=== PATIENT | female | born 1930 | race Caucasian/White ===

== ENCOUNTER 2017-07-27 10:14 | Inpatient (IN) | payer OTHER, MEDICARE ==
[2017-07-27 10:33] VITALS: BMI 22.1
[2017-07-27] MEDS ORDERED: ONDANSETRON 4 MG/2 ML VIAL IVPUSH ONE (10:57)
--- NOTE | 2017-07-27 10:57 | PDOC ---
History of Present Illness - General History Source: Patient Exam Limitations: No Limitations - History of Present Illness Initial Comments: 07/27/17 13:41 The patient is an 87 year old female with past medical history of hypertension, hyperlipidemia, hypothyroidism and depression who presents to the ED with complaints of cough and nasal congestion that began yesterday. 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 This morning she reports experiencing some nausea and vomited en route to the ED, stating it was yellow in appearance. +chills today. She denies any fevers , diarrhea, constipation, chest pain, shortness of breath , or any urinary symptoms. The patient reports she received her flu vaccination and pneumonia vaccination this year. PCP: Chantelle Peterson [employer] Teacher Librarian: Kathrin Kirkpatrick <Tere Lara - Last Filed: 07/27/17 15:13> <Jimbo Lynch - Last Filed: 07/27/17 15:57> - General Chief Complaint: Nausea/Vomiting Stated Complaint: NAUSEA/VOMITING, WEAKNESS Time Seen by Provider: 07/27/17 10:41 Past History <Tere Lara - Last Filed: 07/27/17 15:13> - Past Medical History COPD: No GI Disorders: Yes (HIATAL HERNIA) HTN: Yes Hypercholesterolemia: Yes Psychiatric Problems: Yes (depression) - Suicide/Smoking/Psychosocial Hx Smoking Status: No Smoking History: Never smoked Number of Cigarettes Smoked Daily: 0 <Jimbo Lynch - Last Filed: 07/27/17 15:57> - Past Medical History Allergies/Adverse Reactions: Allergies Allergy/AdvReac Type Severity Reaction Status Date / Time No Known Allergies Allergy Verified 07/27/17 10:24 Home Medications: Ambulatory Orders Diphenhydramine HCl/Zinc Acet [Benadryl Itch Stopping Crm] 1 applic TP TID PRN # 1 tube 03/01/15 Gabapentin [Neurontin -] 100 mg PO DAILY 03/01/15 Gabapentin [Neurontin -] 300 mg PO HS 03/01/15 Lisinopril [Prinivil -] 10 mg PO DAILY 03/01/15 Omeprazole [Prilosec] 40 mg PO DAILY 03/01/15 Rosuvastatin [Crestor -] 10 mg PO HS 03/01/15 Sertraline HCl [Zoloft -] 50 mg PO DAILY 03/01/15 propRANOLol HCL [Inderal] 20 mg PO BID 03/01/15 Review of Systems - Review of Systems Able to Perform ROS?: Yes Comments:: 07/27/17 13:41 GENERAL/CONSTITUTIONAL: No fever or chills. No weakness. HEAD, EYES, EARS, NOSE AND THROAT: Present: Nasal congestion No change in vision. No ear pain or discharge. No sore throat. GASTROINTESTINAL: Present: nausea, vomiting No diarrhea or constipation. GENITOURINARY: No dysuria, frequency, or change in urination. CARDIOVASCULAR: No chest pain or shortness of breath. RESPIRATORY: Present: cough No wheezing, or hemoptysis. MUSCULOSKELETAL: No joint or muscle swelling or pain. No neck or back pain. SKIN: No rash NEUROLOGIC: No headache, vertigo, loss of consciousness, or change in strength/ sensation. ENDOCRINE: No increased thirst. No abnormal weight change. HEMATOLOGIC/LYMPHATIC: No anemia, easy bleeding, or history of blood clots. ALLERGIC/IMMUNOLOGIC: No hives or skin allergy. All Other Systems: Reviewed and Negative <Tere Lara - Last Filed: 07/27/17 15:13> *Physical Exam - Vital Signs Last Vital Signs Temp Pulse Resp BP Pulse Ox 98 F 96 H 18 153/83 96 07/27/17 10:16 07/27/17 10:16 07/27/17 10:16 07/27/17 10:16 07/27/17 10:16 - Physical Exam Comments: 07/27/17 13:41 GENERAL: Awake, alert, and fully oriented, in no acute distress HEAD: No signs of trauma EYES: PERRLA, EOMI, sclera anicteric, conjunctiva clear ENT: Auricles normal inspection, hearing grossly normal, nares patent, oropharynx clear without exudates. Moist mucosa NECK: Normal ROM, supple, no lymphadenopathy, JVD, or masses LUNGS: Breath sounds equal, clear to auscultation bilaterally. No wheezes, and no crackles HEART: Regular rate and rhythm, normal S1 and S2, no rubs or 2/6 TIARRA loudest at RUSB ABDOMEN: Soft, nontender, normoactive bowel sounds. No guarding, no rebound. No masses EXTREMITIES: Normal range of motion, no edema. No clubbing or cyanosis. No cords, erythema, or tenderness NEUROLOGICAL: Normal speech, cranial nerves intact, negative pronator drift, 5/ 5 strength in all 4 extremities, normal sensation to light touch in all 4 extremities, normal cerebellar exam, normal gait, normal reflexes and tone SKIN: Warm, Dry, normal turgor, no rashes or lesions noted. <Tere Lara - Last Filed: 07/27/17 15:13> - Vital Signs Last Vital Signs Temp Pulse Resp BP Pulse Ox 98 F 96 H 18 153/83 96 07/27/17 10:16 07/27/17 10:16 07/27/17 10:16 07/27/17 10:16 07/27/17 10:16 <Jimbo Lynch - Last Filed: 07/27/17 15:57> Heart Score/ECG Review #1 07/27/17 15:55 Twelve-lead EKG was performed and reviewed by me. Normal sinus rhythm, rate 83. Normal axis and intervals. No ST elevations. No T-wave inversions <Jimbo Lynch - Last Filed: 07/27/17 15:57> ED Treatment Course - LABORATORY CBC & Chemistry Diagram: 07/27/17 11:20 07/27/17 11:20 - ADDITIONAL ORDERS Additional order review: Laboratory Results 07/27/17 07/27/17 11:20 11:20 Sodium 139 Potassium 3.5 Chloride 101 Carbon Dioxide 27 Anion Gap 11 BUN 12 Creatinine 0.7 Creat Clearance w eGFR > 60 Random Glucose 128 H Calcium 8.8 Magnesium 1.8 Total Bilirubin 0.7 AST 13 L ALT 20 Alkaline Phosphatase 75 Troponin I < 0.02 B-Natriuretic Peptide 309.54 Cancelled Total Protein 7.6 Albumin 3.6 Lipase 111 07/27/17 11:30 Influenza Types A,B Antigen (VIVI) - Final Nasopharyngeal Swab - Final 07/27/17 11:20 RBC 4.68 MCV 85.5 MCHC 33.4 RDW 14.2 MPV 8.7 Neutrophils % 85.7 H Lymphocytes % 8.3 Monocytes % 5.2 Eosinophils % 0.3 Basophils % 0.5 - RADIOLOGY Radiograph Interpretation: 07/27/17 15:13 Chest X-ray as reviewed by reports development of bilateral medial lower lung zones atelectatic changes vs infiltrate. - Medications Given in the ED: ED Medications Discontinued Medications Generic Name Dose Route Start Last Admin Trade Name Estephania PRN Reason Stop Dose Admin Ondansetron HCl 4 mg 07/27/17 10:57 07/27/17 11:24 Zofran Injection IVPUSH 07/27/17 10:58 4 mg ONCE ONE Administration <Tere Lara - Last Filed: 07/27/17 15:13> - LABORATORY CBC & Chemistry Diagram: 07/27/17 11:20 07/27/17 11:20 <Jimbo Lynch - Last Filed: 07/27/17 15:57> Medical Decision Making - Medical Decision Making 07/27/17 10:59 87-year-old female history of hypertension, hyperlipidemia depression presents the emergency department with 1 day of productive cough since yesterday, generalized weakness, and nausea with 1 episode of vomiting today. Vitals unremarkable. Exam with 2/6 systolic ejection murmur loudest at the right upper sternal border. Differential includes but not limited to influenza versus UTI versus possibly acute coronary syndrome. Plan: -labs -flu swab -cxr -UA -reassess 07/27/17 15:49 Labs wnl. CXR with possible infiltrates, no hospitalizations recently, covered with ceftriaxone and azithro Nausea improved slightly with zofran but pt continues to feel nauseous with poor appetite CTH ordered given global, gradual onset leiva, also ordered tylenol Case discussed with Dr. Juanita Rossi who admits for Dr. Peterson Pt accepted for admission to inpt med/surg Case discussed in detail with admitting physician including history, physical exam and ancillary studies. Admitting physician has assumed care for the patient, will follow all pending diagnostics and will complete the evaluation and treatment. <Jimbo Lynch - Last Filed: 07/27/17 15:57> *DC/Admit/Observation/Transfer - Attestations Scribe Attestion: 07/27/17 13:42 Documentation prepared by Tere Lara, acting as medical technologist hematology for Jimbo Lynch MD. <Tere Lara - Last Filed: 07/27/17 15:13> - Discharge Dispostion Admit: Yes - Attestations Physician Attestion: 07/27/17 15:55 I, Dr. Jimbo Lynch MD, attest that this document has been prepared under my direction and personally reviewed by me in its entirety. I further attest, that it accurately reflects all work, treatment, procedures and medical decision -making performed by me. <Jimbo Lynch - Last Filed: 07/27/17 15:57> Diagnosis at time of Disposition: Pneumonia - Discharge Dispostion Condition at time of disposition: Stable - Referrals Referrals: Chantelle Peterson MD [Primary Care Provider] - - Patient Instructions - Post Discharge Activity
[2017-07-27] MEDS ORDERED: ONDANSETRON 4 MG/2 ML VIAL ONE ×2 (11:05→17:10)
[2017-07-27 11:27] LABS: BASO % 0.5 % (0-2.0); EOS % 0.3 % (0-4.5); HEMATOCRIT 40.1 % (32.4-45.2); HEMOGLOBIN 13.4 GM/dL (10.7-15.3); LYMPH % 8.3 % (8-40); MCH 28.6 pg (25.7-33.7); MCHC 33.4 g/dl (32.0-36.0); MEAN CELL VOLUME 85.5 fl (80-96); MEAN PLT VOLUME 8.7 fl (7.5-11.1); MONO % 5.2 % (3.8-10.2); NEUT % 85.7 % (42.8-82.8); PLATELET COUNT 105 K/MM3 (134-434); RBC 4.68 M/mm3 (3.60-5.2); RDW 14.2 % (11.6-15.6); WHITE BLOOD COUNT 8.1 K/mm3 (4.0-10.0)
[2017-07-27 11:56] LABS: ALBUMIN 3.6 g/dl (3.4-5.0); ANION GAP 11 (8-16); BILIRUBIN,TOTAL 0.7 mg/dL (0.2-1.0); BLOOD UREA NITROGEN 12 mg/dL (7-18); CALCIUM 8.8 mg/dL (8.5-10.1); CHLORIDE 101 mmol/L (98-107); CO2 27 mmol/L (21-32); CREATININE 0.7 mg/dL (0.55-1.02); GLUCOSE,RANDOM 128 mg/dL (74-106); LIPASE 111 U/L (73-393); MAGNESIUM 1.8 mg/dL (1.8-2.4); POTASSIUM 3.5 mmol/L (3.5-5.1); SGOT/AST 13 U/L (15-37); SGPT/ALT 20 U/L (12-78); SODIUM 139 mmol/L (136-145); TOT PROT 7.6 g/dl (6.4-8.2)
[2017-07-27 11:59] LABS: N-TERMINAL BNP 309.54 pg/ml (5-450)
[2017-07-27 12:04] LABS: ALK PHOS 75 U/L (45-117)
[2017-07-27] MEDS ORDERED: ACETAMINOPHEN 325 MG TABLET (FP) ONE (14:52)
[2017-07-27] MEDS ORDERED: ACETAMINOPHEN 500 MG TABLET (FP) PO ONE (14:52)
[2017-07-27] MEDS ORDERED: CEFTRIAXONE 1,000 MG in DEXTROSE 5%-WATER - 50 ML IVPB ONE (15:40)
[2017-07-27] MEDS ORDERED: AZITHROMYCIN IVPB 500 MG in DEXTROSE 5%-WATER - 250 ML IVPB ONE (15:41)
--- NOTE | 2017-07-27 16:21 | EKG ---
Test Reason : Blood Pressure : / mmHG Vent. Rate : 083 BPM Atrial Rate : 083 BPM P-R Int : 152 ms QRS Dur : 094 ms QT Int : 380 ms P-R-T Axes : 081 017 069 degrees QTc Int : 446 ms SINUS RHYTHM WITH MARKED SINUS ARRHYTHMIA POSSIBLE LEFT ATRIAL ENLARGEMENT LEFT VENTRICULAR HYPERTROPHY ABNORMAL ECG WHEN COMPARED WITH ECG OF 11-MAY-2008 11:21, NONSPECIFIC T WAVE ABNORMALITY NOW EVIDENT IN ANTERIOR LEADS Confirmed by CAITLYN ORTEGA, MIRTA ([id number]) on 07/27/2017 4:21:05 PM Referred By: Confirmed By:MIRTA BRADY MD
--- NOTE | 2017-07-27 16:31 | HP ---
Admitting History and Physical - Primary Care Physician PCP: Hedy Rossi S - Admission Chief Complaint: cough N/V History of Present Illness: The patient is an 87 year old female with past medical history of hypertension, hyperlipidemia, hypothyroidism and depression who presents to the ED with complaints of cough and nasal congestion that began yesterday. 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 This morning she reports experiencing some nausea and vomited en route to the ED, stating it was yellow in appearance. +chills today. Also had some headcahes. In ER was borderline tachycardic. She denies any fevers , diarrhea, constipation, chest pain, shortness of breath, or any urinary symptoms. The patient reports she received her flu vaccination and pneumonia vaccination this year. History Source: Patient, Medical Record Limitations to Obtaining History: No Limitations - Past Medical History Cardiovascular: Yes: CAD, HTN - Smoking History Smoking history: Never smoked Aproximately how many cigarettes per day: 0 - Alcohol/Substance Use Hx Alcohol Use: No History of Substance Use: reports: None - Social History Usual Living Arrangement: Yes: Alone ADL: Independent History of Recent Travel: No Home Medications - Allergies Allergies/Adverse Reactions: Allergies Allergy/AdvReac Type Severity Reaction Status Date / Time No Known Allergies Allergy Verified 07/27/17 10:24 - Home Medications Home Medications: Ambulatory Orders Gabapentin [Neurontin -] 100 mg PO DAILY 03/01/15 Gabapentin [Neurontin -] 300 mg PO HS 03/01/15 Lisinopril [Prinivil -] 10 mg PO DAILY 03/01/15 Omeprazole [Prilosec] 40 mg PO DAILY 03/01/15 Rosuvastatin [Crestor -] 10 mg PO HS 03/01/15 Sertraline HCl [Zoloft -] 50 mg PO DAILY 03/01/15 propRANOLol HCL [Inderal] 20 mg PO BID 03/01/15 Family Disease History - Family Disease History Family History: Unremarkable Review of Systems - Review of Systems Constitutional: denies: Chills, Fever Eyes: denies: Blurred Vision, Double Vision HENT: denies: Ear Pain, Epistaxis Neck: denies: Stiffness, Tenderness Cardiovascular: reports: Palpitations. denies: Chest Pain, Edema, Shortness of Breath Respiratory: reports: Cough, SOB on Exertion. denies: Hemoptysis, Orthopnea, PND, SOB, Wheezing Gastrointestinal: reports: Nausea, Vomiting. denies: Abdominal Pain, Bloating, Constipation, Diarrhea, Dysphagia, Vomiting Blood Genitourinary: denies: Flank Pain, Hematuria Musculoskeletal: denies: Back Pain, Joint Swelling Integumentary: denies: Erythema, Rash, Wound Neurological: reports: Headache. denies: Change in LOC, Change in Speech, Confusion, Dizziness, Seizure, Syncope, Tremors, Unsteady Gait Hematology/Lymphatic: denies: Easily Bruised, Excessive Bleeding Psychiatric: denies: Altered Sleep Pattern, Anxiety, Depression, Hallucinations Physical Examination Vital Signs: Vital Signs Temperature 98 F 07/27/17 10:16 Pulse Rate 96 H 07/27/17 10:16 Respiratory Rate 18 07/27/17 10:16 Blood Pressure 153/83 07/27/17 10:16 O2 Sat by Pulse Oximetry (%) 96 07/27/17 10:16 Constitutional: Yes: No Distress, Calm Eyes: Yes: Conjunctiva Clear HENT: Yes: Atraumatic Neck: Yes: Supple Cardiovascular: Yes: Regular Rate and Rhythm Respiratory: Yes: CTA Bilaterally Gastrointestinal: Yes: Soft. No: Distention, Tenderness Renal/: No: CVA Tenderness - Left, CVA Tenderness - Right, Hematuria Musculoskeletal: No: Joint Stiffness, Joint Swelling Extremities: No: Cold, Cool, Cyanosis Edema: No Peripheral Pulses WNL: Yes Integumentary: No: Rash, Venous Stasis Changes Neurological: Yes: WNL, Alert, Oriented ...Motor Strength: WNL Psychiatric: Yes: WNL, Alert, Oriented. No: Agitated, Suicidal Ideation Labs: CBC, BMP 07/27/17 11:20 07/27/17 11:20 Imaging - Results Chest X-ray: Report Reviewed Other: Report Reviewed Assessment/Plan The patient is an 87 year old female with past medical history of hypertension, hyperlipidemia, hypothyroidism and depression who presents to the ED with complaints of cough and congestion 1 day duration, also N/V/ headaches CXR c/w bilateral PNA; will check chest CT admit IV ATB, pulm eval BP control head CT ordered in ER for [facility]IVER[facility] pt said she sees outpt GI, endocrine and cardiology, as per her PCP dr Yaquelin Peterson; I d/w dr Peterson about this pt plan and management also I d/w pt and staff and her 2 sisters at bedside falls PFX GI, DVT PFX prognosis guarded t time 75 min
[2017-07-27] MEDS ORDERED: ALBUTEROL SO4 0.083% IH SOL 2.5 MG/3 ML VIAL.NEB. NEB PRN (16:35)
[2017-07-27] MEDS ORDERED: AZITHROMYCIN IVPB 250 ML IVPB ONE (16:45)
[2017-07-27] MEDS ORDERED: CEFTRIAXONE 1 GM/50 ML BAG ONE (16:46)
[2017-07-27 16:47] LABS: URINE APPEARANCE CLEAR; URINE BILIRUBIN NEGATIVE (<2.0 mg/dL); URINE BLOOD NEGATIVE (NEGATIVE); URINE COLOR LTYELLOW; URINE GLUCOSE (UA) NEGATIVE (NEGATIVE); URINE KETONE 1+ (NEGATIVE); URINE LEUK ESTERASE NEGATIVE (NEGATIVE); URINE NITRITE NEGATIVE (NEGATIVE); URINE UROBILINOGEN NEGATIVE mg/dL (0.2-1.0)
[2017-07-27 16:49] LABS: URINE PROTEIN 1+ (NEGATIVE)
[2017-07-27 16:53] LABS: CALCIUM OXALATE CRYSTALS RARE /hpf (NONE SEEN); URINE BACTERIA RARE /hpf (NONE SEEN)
[2017-07-27 16:54] LABS: URINE MUCUS RARE
[2017-07-27] MEDS ORDERED: PT OWN MED DRAWER 7, Y5N ONE (21:23)
[2017-07-27] MEDS: GABAPENTIN 300 MG CAPSULE (FP) PO SCH (21:37)
[2017-07-27] MEDS: ROSUVASTATIN CA 10 MG TABLET (FP) PO SCH (21:38)
[2017-07-27] MEDS: HEPARIN NA (PORCINE) 5,000 UNITS/ML 1ML VIAL SQ SCH (21:38)
--- NOTE | 2017-07-28 07:20 | PN ---
Progress Note, Physician Chief Complaint: in bed feels a little better no headaches; head CT no acute changes Chest CT d/w pt: RLL 1.2 cm mass/ nodule needs 2-3 months f/u CT and pulm f/u with dr Soto outpt r/o malignancy/ vs inflam process; d/w pt and PCP; also thyroid nodule/ goiter (needs endocrine f/u) coronary calcifications and Ao stenosis needs echo and cardio f/u, large HH (pt aware) needs GI f/u outpt eats OK no N/V/ abdominal pain O2 sat/RA 96% pt ambulates to the bathroom and into the hallway d/w pt falls PFX call for help if needs OOB - Current Medication List Current Medications: Active Medications Albuterol Sulfate (Ventolin 0.083% Nebulizer Soln -) 1 amp NEB Q6H PRN PRN Reason: SHORT OF BREATH/WHEEZING Gabapentin (Neurontin -) 300 mg PO [facility] Last Admin: 07/27/17 21:37 Dose: 300 mg Heparin Sodium (Porcine) (Heparin -) 5,000 unit SQ BID [facility] Last Admin: 07/27/17 21:38 Dose: 5,000 unit Azithromycin 500 mg/ Dextrose 250 mls @ 250 mls/hr IVPB DAILY [facility] Ceftriaxone Sodium 1 gm/ (Dextrose) 50 mls @ 100 mls/hr IVPB DAILY [facility] Lisinopril (Prinivil) 10 mg PO DAILY [facility] Pantoprazole Sodium (Protonix -) 40 mg PO DAILY [facility] Propranolol HCl (Inderal -) 20 mg PO BID [facility] Last Admin: 07/27/17 22:52 Dose: 20 mg Rosuvastatin Calcium (Crestor -) 10 mg PO [facility] Last Admin: 07/27/17 21:38 Dose: 10 mg Sertraline HCl (Zoloft -) 50 mg PO DAILY [facility] - Objective Vital Signs: Vital Signs Temperature 98.5 F 07/28/17 06:00 Pulse Rate 67 07/28/17 06:00 Respiratory Rate 18 07/28/17 06:00 Blood Pressure 114/69 07/28/17 06:00 O2 Sat by Pulse Oximetry (%) 96 07/27/17 21:00 Constitutional: Yes: No Distress, Calm Eyes: Yes: Conjunctiva Clear HENT: Yes: Atraumatic Neck: Yes: Supple Cardiovascular: Yes: Regular Rate and Rhythm Respiratory: Yes: CTA Bilaterally Gastrointestinal: Yes: Soft. No: Distention, Tenderness Genitourinary: No: CVA Tenderness - Left, CVA Tenderness - Right Musculoskeletal: No: Joint Stiffness, Joint Swelling Extremities: No: Calf Tenderness, Cold, Cool, Cyanosis Edema: No Integumentary: No: Rash, Venous Stasis Changes Neurological: Yes: WNL, Alert, Oriented ...Motor Strength: WNL Psychiatric: Yes: WNL, Alert, Oriented. No: Agitated, Suicidal Ideation Labs: CBC, BMP 07/27/17 11:20 07/27/17 11:20 - ....Imaging Other: Report Reviewed Assessment/Plan The patient is an 87 year old female with past medical history of hypertension, hyperlipidemia, hypothyroidism and depression who presents to the ED with complaints of cough and congestion 1 day duration, also N/V/ headaches CXR c/w bilateral PNA;chest CT d/w pt see above f/u needed pt aware IV ATB, pulm f/u BP control head CT negative cardio eval r/o AoSt and ASHD, check echo will need close outpt GI, endocrine and cardiology, as per her PCP dr Yaquelin Peterson ; I d/w dr Peterson about this pt plan and management falls PFX GI, DVT PFX prognosis guarded d/w pt and staff t time 45 min
[2017-07-28 08:42] LABS: BASO % 0.3 % (0-2.0); EOS % 3.7 % (0-4.5); HEMOGLOBIN 12.1 GM/dL (10.7-15.3); LYMPH % 11.5 % (8-40); MCH 28.8 pg (25.7-33.7); MCHC 33.7 g/dl (32.0-36.0); MEAN CELL VOLUME 85.5 fl (80-96); MEAN PLT VOLUME 8.9 fl (7.5-11.1); MONO % 14.1 % (3.8-10.2); NEUT % 70.4 % (42.8-82.8); PLATELET COUNT 106 K/MM3 (134-434); RBC 4.21 M/mm3 (3.60-5.2); RDW 14.3 % (11.6-15.6); WHITE BLOOD COUNT 4.1 K/mm3 (4.0-10.0)
[2017-07-28 08:49] LABS: CHLORIDE 102 mmol/L (98-107); POTASSIUM 4.1 mmol/L (3.5-5.1); SODIUM 140 mmol/L (136-145)
[2017-07-28 09:10] LABS: ALBUMIN 3.1 g/dl (3.4-5.0); ALK PHOS 60 U/L (45-117); ANION GAP 7 (8-16); BILIRUBIN,TOTAL 0.3 mg/dL (0.2-1.0); BLOOD UREA NITROGEN 15 mg/dL (7-18); CALCIUM 8.6 mg/dL (8.5-10.1); CO2 31 mmol/L (21-32); CREATININE 0.7 mg/dL (0.55-1.02); GLUCOSE,RANDOM 89 mg/dL (74-106); SGOT/AST 19 U/L (15-37); SGPT/ALT 20 U/L (12-78); TOT PROT 6.3 g/dl (6.4-8.2)
[2017-07-28] MEDS ORDERED: cefTRIAXone SODIUM 1 GM VIAL ONE (09:29)
[2017-07-28] MEDS ORDERED: DEXTROSE 5%-WATER - 50 ML IVPB ONE (09:29)
[2017-07-28] MEDS ORDERED: PT OWN MED DRAWER 7, Y5N ONE ×2 (09:29→21:52)
[2017-07-28] MEDS: LISINOPRIL 10 MG TABLET (FP) PO SCH (09:47)
[2017-07-28] MEDS: PANTOPRAZOLE 40 MG TABLET (FP) PO SCH (09:48)
[2017-07-28] MEDS: SERTRALINE HCL 50 MG TABLET (FP) PO SCH (09:48)
[2017-07-28] MEDS: CEFTRIAXONE 1 GM in DEXTROSE 5%-WATER - 50 ML IVPB SCH (09:52)
[2017-07-28] MEDS: AZITHROMYCIN IVPB 500 MG in DEXTROSE 5%-WATER - 250 ML IVPB SCH (09:52)
[2017-07-28] MEDS: HEPARIN NA (PORCINE) 5,000 UNITS/ML 1ML VIAL SQ SCH ×2 (09:53→21:56)
--- NOTE | 2017-07-28 14:11 | PN ---
Progress Note (short form) - Note Progress Note: PULMONARY CONSULTATION DICTATED 07/28/17 IMP COUGH ,CONGESTION PNEUMONIA N/V HTN HLD THROMBOCYTOPENIA H/O THYROID NODULES PLAN ABX CHEST CT SPUTUM C+S MONITOR PLT CT DR MARTINEZ Problem List - Problems (1) Nausea & vomiting Code(s): R11.2 - NAUSEA WITH VOMITING, UNSPECIFIED (2) Pneumonia Code(s): J18.9 - PNEUMONIA, UNSPECIFIED ORGANISM (3) HTN (hypertension) Code(s): I10 - ESSENTIAL (PRIMARY) HYPERTENSION (4) Thrombocytopenia Code(s): D69.6 - THROMBOCYTOPENIA, UNSPECIFIED (5) HLD (hyperlipidemia) Code(s): E78.5 - HYPERLIPIDEMIA, UNSPECIFIED
--- NOTE | 2017-07-28 14:58 | CONS ---
DATE OF CONSULTATION: 07/28/2017 REFERRING PHYSICIAN: Hedy Rossi MD HISTORY OF PRESENT ILLNESS: The patient is an 87-year-old white female with a past medical history of hypertension, hypothyroidism, hyperlipidemia, thyroid nodules, depression, admitted to [facility] with complaint of cough, nasal congestion. 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 Afterwards, she had a [id number] and started developing some nausea and vomiting. She also had a cough productive of yellow sputum and some chills. She denied any chest pain, nausea, vomiting, diaphoresis. She denied any shortness of breath. Patient presented to the emergency room. She was felt to have a possible pneumonia. She was transferred out to the medical floor for further management. She denies any history of COPD or asthma in the past. She is a nonsmoker. There is no history of occupational exposure to chemical fumes. She denies any shortness of breath, PND, orthopnea. PAST MEDICAL HISTORY: Again includes hypertension, hyperlipidemia, hypothyroidism, depression. REVIEW OF SYSTEMS: No orthopnea. No PND. No chest pain. No palpitations. Positive for cough which has improved. No fever. No chills. No hemoptysis. Positive nausea. CURRENT MEDICATIONS: Include Zithromax, Prinivil, ceftriaxone, heparin, Neurontin, Zoloft, albuterol, Inderal, Crestor, and Protonix. PHYSICAL EXAMINATION: General: The patient is a well-developed, well-nourished female, awake, alert, in no acute distress. Vital signs: She is afebrile, blood pressure 149/82, respiratory rate 18, O2 saturation is 96% on room air. HEENT: Head is normocephalic atraumatic. Neck: Supple. Heart: Regular, S1, S2. Chest: A few rhonchi noted at the bases, a few scattered rhonchi. Abdomen: Soft. Bowel sounds positive present. Extremities: No cyanosis or edema. LABORATORIES: BUN 15, creatinine 0.7. WBC is 4.1, hemoglobin 12.1, hematocrit 36, platelet count of 106,000. Chest x-ray reveals mild changes, possibly bibasilar infiltrates versus atelectasis. IMPRESSION: 1. Cough, chest congestion, possible pneumonia. 2. Nausea and vomiting, etiology possible gastroenteritis. 3. Mild thrombocytopenia. 4. Hypertension. 5. Hyperlipidemia. 6. Hypothyroidism. PLAN: Give antibiotics, obtain CT scan of the chest, supplemental O2, monitor platelet count. NIKI MARTINEZ M.D. [id number]
[2017-07-28] MEDS: ROSUVASTATIN CA 10 MG TABLET (FP) PO SCH (21:57)
[2017-07-28] MEDS: GABAPENTIN 300 MG CAPSULE (FP) PO SCH (21:57)
--- NOTE | 2017-07-29 07:00 | PN ---
Progress Note, Physician Chief Complaint: had some diarrhea x2 possibly sec to ATB no N/V/ abdominal pain ate OK - Current Medication List Current Medications: Active Medications Albuterol Sulfate (Ventolin 0.083% Nebulizer Soln -) 1 amp NEB Q6H PRN PRN Reason: SHORT OF BREATH/WHEEZING Gabapentin (Neurontin -) 300 mg PO HS [facility] Last Admin: 07/28/17 21:57 Dose: 300 mg Heparin Sodium (Porcine) (Heparin -) 5,000 unit SQ BID [facility] Last Admin: 07/28/17 21:56 Dose: 5,000 unit Azithromycin 500 mg/ Dextrose 250 mls @ 250 mls/hr IVPB DAILY [facility] Last Admin: 07/28/17 09:52 Dose: 250 mls/hr Ceftriaxone Sodium 1 gm/ (Dextrose) 50 mls @ 100 mls/hr IVPB DAILY [facility] Last Admin: 07/28/17 09:52 Dose: 100 mls/hr Lisinopril (Prinivil) 10 mg PO DAILY [facility] Last Admin: 07/28/17 09:47 Dose: 10 mg Pantoprazole Sodium (Protonix -) 40 mg PO DAILY [facility] Last Admin: 07/28/17 09:48 Dose: 40 mg Propranolol HCl (Inderal -) 20 mg PO BID [facility] Last Admin: 07/28/17 21:58 Dose: 20 mg Rosuvastatin Calcium (Crestor -) 10 mg PO [facility] Last Admin: 07/28/17 21:57 Dose: 10 mg Sertraline HCl (Zoloft -) 50 mg PO DAILY [facility] Last Admin: 07/28/17 09:48 Dose: 50 mg - Objective Vital Signs: Vital Signs Temperature 98.0 F 07/28/17 22:00 Pulse Rate 63 07/28/17 22:00 Respiratory Rate 20 07/28/17 22:00 Blood Pressure 117/60 07/28/17 22:00 O2 Sat by Pulse Oximetry (%) 96 07/28/17 21:00 Constitutional: Yes: No Distress, Calm Eyes: Yes: Conjunctiva Clear HENT: Yes: Atraumatic Neck: Yes: Supple Cardiovascular: Yes: Regular Rate and Rhythm Respiratory: Yes: CTA Bilaterally Gastrointestinal: Yes: Soft. No: Distention Genitourinary: No: CVA Tenderness - Left, CVA Tenderness - Right Musculoskeletal: No: Joint Stiffness, Joint Swelling Extremities: No: Cold, Cool Edema: No Integumentary: No: Rash, Venous Stasis Changes Neurological: Yes: WNL, Alert, Oriented ...Motor Strength: WNL Psychiatric: Yes: WNL, Alert, Oriented. No: Agitated Labs: CBC, BMP 07/28/17 07:30 07/28/17 07:30 - ....Imaging Other: Report Reviewed Assessment/Plan The patient is an 87 year old female with past medical history of hypertension, hyperlipidemia, hypothyroidism and depression who presents to the ED with complaints of cough and congestion 1 day duration, also N/V/ headaches CXR c/w bilateral PNA;chest CT d/w pt again f/u needed pt aware IV ATB, pulm f/u BP control diarrhea: check Cdiff, po bacid cardio eval r/o AoSt and ASHD, check echo will need close outpt GI, endocrine and cardiology, as per her PCP dr Yaquelin Peterson ; I d/w dr Peterson about this pt plan and management falls PFX GI, DVT PFX prognosis guarded d/w pt and staff
[2017-07-29 07:37] LABS: BASO % 0.7 % (0-2.0); EOS % 4.4 % (0-4.5); HEMATOCRIT 34.3 % (32.4-45.2); HEMOGLOBIN 11.8 GM/dL (10.7-15.3); LYMPH % 23.3 % (8-40); MCH 29.1 pg (25.7-33.7); MCHC 34.3 g/dl (32.0-36.0); MEAN CELL VOLUME 84.8 fl (80-96); MEAN PLT VOLUME 9.3 fl (7.5-11.1); MONO % 14.5 % (3.8-10.2); NEUT % 57.1 % (42.8-82.8); PLATELET COUNT 112 K/MM3 (134-434); RBC 4.05 M/mm3 (3.60-5.2); RDW 14.5 % (11.6-15.6); WHITE BLOOD COUNT 3.2 K/mm3 (4.0-10.0)
[2017-07-29 07:54] LABS: BLOOD UREA NITROGEN 18 mg/dL (7-18); CALCIUM 8.5 mg/dL (8.5-10.1); CHLORIDE 105 mmol/L (98-107); POTASSIUM 3.4 mmol/L (3.5-5.1); SODIUM 142 mmol/L (136-145)
[2017-07-29 08:00] LABS: ALK PHOS 58 U/L (45-117); ANION GAP 7 (8-16); BILIRUBIN,TOTAL 0.2 mg/dL (0.2-1.0); CO2 30 mmol/L (21-32); CREATININE 0.7 mg/dL (0.55-1.02); GLUCOSE,RANDOM 87 mg/dL (74-106); SGOT/AST 18 U/L (15-37); SGPT/ALT 20 U/L (12-78); TOT PROT 6.3 g/dl (6.4-8.2)
[2017-07-29] MEDS ORDERED: cefTRIAXone SODIUM 1 GM VIAL ONE (11:12)
[2017-07-29] MEDS ORDERED: DEXTROSE 5%-WATER - 50 ML IVPB ONE (11:13)
[2017-07-29] MEDS: PANTOPRAZOLE 40 MG TABLET (FP) PO SCH (11:14)
[2017-07-29] MEDS: SERTRALINE HCL 50 MG TABLET (FP) PO SCH (11:14)
[2017-07-29] MEDS: HEPARIN NA (PORCINE) 5,000 UNITS/ML 1ML VIAL SQ SCH ×2 (11:14→21:25)
[2017-07-29] MEDS: CEFTRIAXONE 1 GM in DEXTROSE 5%-WATER - 50 ML IVPB SCH (11:14)
[2017-07-29] MEDS: LISINOPRIL 10 MG TABLET (FP) PO SCH (11:14)
[2017-07-29] MEDS ORDERED: POTASSIUM CHLORIDE TABS 20 MEQ TABLET.ER (FP) PO ONE (11:21)
--- NOTE | 2017-07-29 12:52 | PN ---
Progress Note, Physician History of Present Illness: pulmonary alert,nad,-sob,less cough,abd pain - Current Medication List Current Medications: Active Medications Albuterol Sulfate (Ventolin 0.083% Nebulizer Soln -) 1 amp NEB Q6H PRN PRN Reason: SHORT OF BREATH/WHEEZING Gabapentin (Neurontin -) 300 mg PO [facility] Last Admin: 07/28/17 21:57 Dose: 300 mg Heparin Sodium (Porcine) (Heparin -) 5,000 unit SQ BID [facility] Last Admin: 07/29/17 11:14 Dose: 5,000 unit Azithromycin 500 mg/ Dextrose 250 mls @ 250 mls/hr IVPB DAILY [facility] Last Admin: 07/28/17 09:52 Dose: 250 mls/hr Ceftriaxone Sodium 1 gm/ (Dextrose) 50 mls @ 100 mls/hr IVPB DAILY [facility] Last Admin: 07/29/17 11:14 Dose: 100 mls/hr Lactobacillus Acidophilus (Bacid -) 1 cap PO DAILY [facility] Lisinopril (Prinivil) 10 mg PO DAILY [facility] Last Admin: 07/29/17 11:14 Dose: 10 mg Pantoprazole Sodium (Protonix -) 40 mg PO DAILY [facility] Last Admin: 07/29/17 11:14 Dose: 40 mg Propranolol HCl (Inderal -) 20 mg PO BID [facility] Last Admin: 07/29/17 11:16 Dose: 20 mg Rosuvastatin Calcium (Crestor -) 10 mg PO [facility] Last Admin: 07/28/17 21:57 Dose: 10 mg Sertraline HCl (Zoloft -) 50 mg PO DAILY [facility] Last Admin: 07/29/17 11:14 Dose: 50 mg - Objective Vital Signs: Vital Signs Temperature 97.9 F 07/29/17 06:00 Pulse Rate 60 07/29/17 06:00 Respiratory Rate 20 07/29/17 06:00 Blood Pressure 132/67 07/29/17 06:00 O2 Sat by Pulse Oximetry (%) 96 07/28/17 21:00 Constitutional: Yes: Well Nourished, Calm Eyes: Yes: WNL HENT: Yes: WNL Neck: Yes: WNL Cardiovascular: Yes: Regular Rate and Rhythm, S1, S2 Respiratory: Yes: CTA Bilaterally Gastrointestinal: Yes: Normal Bowel Sounds, Soft Extremities: Yes: WNL Edema: No Labs: CBC, BMP 07/29/17 07:10 07/29/17 07:10 - ....Imaging Cat Scan: Report Reviewed, Image Reviewed Problem List - Problems (1) Nausea & vomiting Code(s): R11.2 - NAUSEA WITH VOMITING, UNSPECIFIED (2) Pneumonia Code(s): J18.9 - PNEUMONIA, UNSPECIFIED ORGANISM (3) HTN (hypertension) Code(s): I10 - ESSENTIAL (PRIMARY) HYPERTENSION (4) Thrombocytopenia Code(s): D69.6 - THROMBOCYTOPENIA, UNSPECIFIED (5) HLD (hyperlipidemia) Code(s): E78.5 - HYPERLIPIDEMIA, UNSPECIFIED Assessment/Plan IMP COUGH ,CONGESTION improved PNEUMONIA RLL NODULAR INFILTRATE ? INFECTIOUS,? INFLAMMATORY N/V HTN HLD THROMBOCYTOPENIA H/O THYROID NODULES ? PLAN ABX F/U CHEST CT 6-8WKS MONITOR PLT CT ECHO DR MARTINEZ Problem List - Problems (1) Nausea & vomiting Code(s): R11.2 - NAUSEA WITH VOMITING, UNSPECIFIED (2) Pneumonia Code(s): J18.9 - PNEUMONIA, UNSPECIFIED ORGANISM (3) HTN (hypertension) Code(s): I10 - ESSENTIAL (PRIMARY) HYPERTENSION (4) Thrombocytopenia Code(s): D69.6 - THROMBOCYTOPENIA, UNSPECIFIED (5) HLD (hyperlipidemia) Code(s): E78.5 - HYPERLIPIDEMIA, UNSPECIFIED
[2017-07-29] MEDS: AZITHROMYCIN IVPB 500 MG in DEXTROSE 5%-WATER - 250 ML IVPB SCH (12:56)
[2017-07-29] MEDS: LACTOBACILLUS ACIDOPHILUS 1 CAP PO SCH (12:57)
[2017-07-29] MEDS: GABAPENTIN 300 MG CAPSULE (FP) PO SCH (21:25)
[2017-07-29] MEDS: ROSUVASTATIN CA 10 MG TABLET (FP) PO SCH (21:26)
[2017-07-30 07:23] LABS: EOS % 3.6 % (0-4.5); HEMATOCRIT 35.5 % (32.4-45.2); HEMOGLOBIN 12.1 GM/dL (10.7-15.3); LYMPH % 24.2 % (8-40); MCHC 34.2 g/dl (32.0-36.0); MEAN CELL VOLUME 84.9 fl (80-96); MEAN PLT VOLUME 9.1 fl (7.5-11.1); MONO % 11.9 % (3.8-10.2); NEUT % 59.3 % (42.8-82.8); PLATELET COUNT 123 K/MM3 (134-434); RBC 4.18 M/mm3 (3.60-5.2); WHITE BLOOD COUNT 3.3 K/mm3 (4.0-10.0)
--- NOTE | 2017-07-30 07:34 | PN ---
Progress Note, Physician Chief Complaint: in bed NAD no new c/o feels well; afebrile; coughing no sputum no CP/SOB seen by cardio, awaiting echo - Current Medication List Current Medications: Active Medications Albuterol Sulfate (Ventolin 0.083% Nebulizer Soln -) 1 amp NEB Q6H PRN PRN Reason: SHORT OF BREATH/WHEEZING Gabapentin (Neurontin -) 300 mg PO [facility] Last Admin: 07/29/17 21:25 Dose: 300 mg Heparin Sodium (Porcine) (Heparin -) 5,000 unit SQ BID [facility] Last Admin: 07/29/17 21:25 Dose: 5,000 unit Azithromycin 500 mg/ Dextrose 250 mls @ 250 mls/hr IVPB DAILY [facility] Last Admin: 07/29/17 12:56 Dose: 250 mls/hr Ceftriaxone Sodium 1 gm/ (Dextrose) 50 mls @ 100 mls/hr IVPB DAILY [facility] Last Admin: 07/29/17 11:14 Dose: 100 mls/hr Lactobacillus Acidophilus (Bacid -) 1 cap PO DAILY [facility] Last Admin: 07/29/17 12:57 Dose: 1 cap Lisinopril (Prinivil) 10 mg PO DAILY [facility] Last Admin: 07/29/17 11:14 Dose: 10 mg Pantoprazole Sodium (Protonix -) 40 mg PO DAILY [facility] Last Admin: 07/29/17 11:14 Dose: 40 mg Propranolol HCl (Inderal -) 20 mg PO BID [facility] Last Admin: 07/29/17 21:25 Dose: 20 mg Rosuvastatin Calcium (Crestor -) 10 mg [address] [facility] Last Admin: 07/29/17 21:26 Dose: 10 mg Sertraline HCl (Zoloft -) 50 mg PO DAILY [facility] Last Admin: 07/29/17 11:14 Dose: 50 mg - Objective Vital Signs: Vital Signs Temperature 97.6 F 07/29/17 18:00 Pulse Rate 66 07/30/17 00:46 Respiratory Rate 20 07/30/17 00:46 Blood Pressure 150/70 07/30/17 00:46 O2 Sat by Pulse Oximetry (%) 98 07/29/17 21:00 Constitutional: Yes: No Distress, Calm Eyes: Yes: Conjunctiva Clear HENT: Yes: Atraumatic Neck: Yes: Supple Cardiovascular: Yes: Regular Rate and Rhythm Respiratory: Yes: CTA Bilaterally Gastrointestinal: Yes: Soft. No: Distention Genitourinary: No: CVA Tenderness - Left, CVA Tenderness - Right Musculoskeletal: No: Joint Stiffness, Joint Swelling Extremities: No: Cold, Cool, Cyanosis Edema: No Integumentary: No: Rash, Venous Stasis Changes Neurological: Yes: WNL, Alert, Oriented ...Motor Strength: WNL Psychiatric: Yes: WNL, Alert, Oriented. No: Agitated, Suicidal Ideation - ....Imaging Other: Report Reviewed Assessment/Plan The patient is an 87 year old female with past medical history of hypertension, hyperlipidemia, hypothyroidism and depression who presents to the ED with complaints of cough and congestion 1 day duration, also N/V/ headaches CXR c/w bilateral PNA;chest CT outpt 2-3 months f/u check echo IV ATB, pulm f/u BP control diarrhea: check Cdiff, po bacid cardio eval r/o [facility] and [facility] will need close outpt GI, endocrine and cardiology falls PFX GI, DVT PFX prognosis guarded d/w pt and staff
[2017-07-30 07:41] LABS: ANION GAP 10 (8-16); BLOOD UREA NITROGEN 14 mg/dL (7-18); CALCIUM 9.1 mg/dL (8.5-10.1); CHLORIDE 106 mmol/L (98-107); CO2 29 mmol/L (21-32); CREATININE 0.7 mg/dL (0.55-1.02); GLUCOSE,RANDOM 93 mg/dL (74-106); POTASSIUM 3.9 mmol/L (3.5-5.1); SODIUM 145 mmol/L (136-145)
[2017-07-30] MEDS ORDERED: cefTRIAXone SODIUM 1 GM VIAL ONE (09:23)
[2017-07-30] MEDS ORDERED: DEXTROSE 5%-WATER - 50 ML IVPB ONE (09:23)
[2017-07-30] MEDS: SERTRALINE HCL 50 MG TABLET (FP) PO SCH (09:26)
[2017-07-30] MEDS: CEFTRIAXONE 1 GM in DEXTROSE 5%-WATER - 50 ML IVPB SCH (09:26)
[2017-07-30] MEDS: LACTOBACILLUS ACIDOPHILUS 1 CAP PO SCH (09:26)
[2017-07-30] MEDS: HEPARIN NA (PORCINE) 5,000 UNITS/ML 1ML VIAL SQ SCH ×2 (09:26→21:21)
[2017-07-30] MEDS: LISINOPRIL 10 MG TABLET (FP) PO SCH (09:26)
[2017-07-30] MEDS: PANTOPRAZOLE 40 MG TABLET (FP) PO SCH (09:26)
[2017-07-30] MEDS: AZITHROMYCIN IVPB 500 MG in DEXTROSE 5%-WATER - 250 ML IVPB SCH (11:14)
--- NOTE | 2017-07-30 12:23 | PN ---
Progress Note, Physician History of Present Illness: pulmonary alert,no distress,-sob,min cough - Current Medication List Current Medications: Active Medications Albuterol Sulfate (Ventolin 0.083% Nebulizer Soln -) 1 amp NEB Q6H PRN PRN Reason: SHORT OF BREATH/WHEEZING Gabapentin (Neurontin -) 300 mg PO HS [facility] Last Admin: 07/29/17 21:25 Dose: 300 mg Heparin Sodium (Porcine) (Heparin -) 5,000 unit SQ BID [facility] Last Admin: 07/30/17 09:26 Dose: 5,000 unit Azithromycin 500 mg/ Dextrose 250 mls @ 250 mls/hr IVPB DAILY [facility] Last Admin: 07/30/17 11:14 Dose: 250 mls/hr Ceftriaxone Sodium 1 gm/ (Dextrose) 50 mls @ 100 mls/hr IVPB DAILY [facility] Last Admin: 07/30/17 09:26 Dose: 100 mls/hr Lactobacillus Acidophilus (Bacid -) 1 cap PO DAILY [facility] Last Admin: 07/30/17 09:26 Dose: 1 cap Lisinopril (Prinivil) 10 mg PO DAILY [facility] Last Admin: 07/30/17 09:26 Dose: 10 mg Pantoprazole Sodium (Protonix -) 40 mg PO DAILY [facility] Last Admin: 07/30/17 09:26 Dose: 40 mg Propranolol HCl (Inderal -) 20 mg PO BID [facility] Last Admin: 07/30/17 09:28 Dose: 20 mg Rosuvastatin Calcium (Crestor -) 10 mg PO [facility] Last Admin: 07/29/17 21:26 Dose: 10 mg Sertraline HCl (Zoloft -) 50 mg PO DAILY [facility] Last Admin: 07/30/17 09:26 Dose: 50 mg - Objective Vital Signs: Vital Signs Temperature 97.5 F L 07/30/17 10:00 Pulse Rate 66 07/30/17 10:00 Respiratory Rate 20 07/30/17 10:00 Blood Pressure 168/82 07/30/17 10:00 O2 Sat by Pulse Oximetry (%) 98 07/29/17 21:00 Constitutional: Yes: Well Nourished, Calm Eyes: Yes: WNL HENT: Yes: WNL Neck: Yes: WNL Cardiovascular: Yes: Regular Rate and Rhythm, S2 Respiratory: Yes: Rales Gastrointestinal: Yes: Normal Bowel Sounds, Soft Extremities: Yes: WNL Edema: No Labs: CBC, BMP 07/30/17 07:05 07/30/17 07:05 Problem List - Problems (1) Nausea & vomiting Code(s): R11.2 - NAUSEA WITH VOMITING, UNSPECIFIED (2) Pneumonia Code(s): J18.9 - PNEUMONIA, UNSPECIFIED ORGANISM (3) HTN (hypertension) Code(s): I10 - ESSENTIAL (PRIMARY) HYPERTENSION (4) Thrombocytopenia Code(s): D69.6 - THROMBOCYTOPENIA, UNSPECIFIED (5) HLD (hyperlipidemia) Code(s): E78.5 - HYPERLIPIDEMIA, UNSPECIFIED Assessment/Plan IMP COUGH ,CONGESTION improved PNEUMONIA RLL NODULAR INFILTRATE ? INFECTIOUS,? INFLAMMATORY N/V HTN HLD THROMBOCYTOPENIA H/O THYROID NODULES ? PLAN ABX F/U CHEST CT 6-8WKS MONITOR PLT CT ECHO DR MARTINEZ Problem List - Problems (1) Nausea & vomiting Code(s): R11.2 - NAUSEA WITH VOMITING, UNSPECIFIED (2) Pneumonia Code(s): J18.9 - PNEUMONIA, UNSPECIFIED ORGANISM (3) HTN (hypertension) Code(s): I10 - ESSENTIAL (PRIMARY) HYPERTENSION (4) Thrombocytopenia Code(s): D69.6 - THROMBOCYTOPENIA, UNSPECIFIED (5) HLD (hyperlipidemia) Code(s): E78.5 - HYPERLIPIDEMIA, UNSPECIFIED
--- NOTE | 2017-07-30 12:41 | CON.CARD ---
Cardiology Consult (text) - Consultation Consultation Note: cc: sob, nasal congestion hpi: 87 f hx htn, hld, hiatal hernia here with pna. No cp, palps, dizzy, loc, pnd, orthopnea, le edema. Feeling well now, on abx. pmh: per hpi psh: nc social: no tob fam: nc ros: no nvd, fever, muscle pains, leiva, vision changes, gib, hematuria, dysuria meds: Ambulatory Orders Gabapentin [Neurontin -] 100 mg PO DAILY 03/01/15 Gabapentin [Neurontin -] 300 mg PO HS 03/01/15 Lisinopril [Prinivil -] 10 mg PO DAILY 03/01/15 Omeprazole [Prilosec] 40 mg PO DAILY 03/01/15 Rosuvastatin [Crestor -] 10 mg PO HS 03/01/15 Sertraline HCl [Zoloft -] 50 mg PO DAILY 03/01/15 propRANOLol HCL [Inderal] 20 mg PO BID 03/01/15 pe: Vital Signs Period Temp Pulse Resp BP Sys/Philip Pulse Ox Last 24 Hr 97.5 F-98.3 F 60-66 18-20 128-168/62-82 98 nad no jvd rrr s1s2 +as murmur, no r/g cta bl nl eff aaox3 no le e/c/c abd nt nd pos bs pos dp pt no carotid bruits no jaundice diaphoresis Laboratory Last Values WBC 3.3 K/mm3 (4.0-10.0) L 07/30/17 07:05 RBC 4.18 M/mm3 (3.60-5.2) 07/30/17 07:05 Hgb 12.1 GM/dL (10.7-15.3) 07/30/17 07:05 Hct 35.5 % (32.4-45.2) 07/30/17 07:05 MCV 84.9 fl (80-96) 07/30/17 07:05 MCH 29.0 pg (25.7-33.7) 07/30/17 07:05 MCHC 34.2 g/dl (32.0-36.0) 07/30/17 07:05 RDW 14.0 % (11.6-15.6) 07/30/17 07:05 Plt Count 123 K/MM3 (134-434) L 07/30/17 07:05 MPV 9.1 fl (7.5-11.1) 07/30/17 07:05 Neutrophils % 59.3 % (42.8-82.8) 07/30/17 07:05 Lymphocytes % 24.2 % (8-40) 07/30/17 07:05 Monocytes % 11.9 % (3.8-10.2) H 07/30/17 07:05 Eosinophils % 3.6 % (0-4.5) 07/30/17 07:05 Basophils % 1.0 % (0-2.0) 07/30/17 07:05 Sodium 145 mmol/L (136-145) 07/30/17 07:05 Potassium 3.9 mmol/L (3.5-5.1) 07/30/17 07:05 Chloride 106 mmol/L (98-107) 07/30/17 07:05 Carbon Dioxide 29 mmol/L (21-32) 07/30/17 07:05 Anion Gap 10 (8-16) 07/30/17 07:05 BUN 14 mg/dL (7-18) 07/30/17 07:05 Creatinine 0.7 mg/dL (0.55-1.02) 07/30/17 07:05 Creat Clearance w eGFR > 60 (>60) 07/29/17 07:10 Random Glucose 93 mg/dL (74-106) 07/30/17 07:05 Calcium 9.1 mg/dL (8.5-10.1) 07/30/17 07:05 Magnesium 1.8 mg/dL (1.8-2.4) 07/27/17 11:20 Total Bilirubin 0.2 mg/dL (0.2-1.0) D 07/29/17 07:10 AST 18 U/L (15-37) 07/29/17 07:10 ALT 20 U/L (12-78) 07/29/17 07:10 Alkaline Phosphatase 58 U/L (45-117) 07/29/17 07:10 Creatine Kinase 79 IU/L (26-192) 07/28/17 07:30 Troponin I < 0.02 ng/ml (0.00-0.05) 07/28/17 07:30 B-Natriuretic Peptide 309.54 pg/ml (5-450) 07/27/17 11:20 Total Protein 6.3 g/dl (6.4-8.2) L 07/29/17 07:10 Albumin 3.0 g/dl (3.4-5.0) L 07/29/17 07:10 Lipase 111 U/L (73-393) 07/27/17 11:20 TSH 0.17 uIU/ml (0.358-3.74) L 07/28/17 07:30 Urine Color Ltyellow 07/27/17 16:27 Urine Appearance Clear 07/27/17 16:27 Urine pH 6.0 (5.0-8.0) 07/27/17 16:27 Ur Specific [place] 1.010 (1.001-1.035) 07/27/17 16:27 Urine Protein 1+ (NEGATIVE) H 07/27/17 16:27 Urine Glucose (UA) Negative (NEGATIVE) 07/27/17 16:27 Urine Ketones 1+ (NEGATIVE) H 07/27/17 16:27 Urine Blood Negative (NEGATIVE) 07/27/17 16:27 Urine Nitrite Negative (NEGATIVE) 07/27/17 16:27 Urine Bilirubin Negative (<2.0 mg/dL) 07/27/17 16:27 Urine Urobilinogen Negative mg/dL (0.2-1.0) 07/27/17 16:27 Ur Leukocyte Esterase Negative (NEGATIVE) 07/27/17 16:27 Urine WBC (Auto) 3 /hpf (3-5) 07/27/17 16:27 Urine RBC (Auto) 4 /hpf (0-3) 07/27/17 16:27 Calcium Oxalate Crystal Rare /hpf (NONE SEEN) 07/27/17 16:27 Urine Bacteria Rare /hpf (NONE SEEN) 07/27/17 16:27 Urine Mucus Rare 07/27/17 16:27 ct chest: no chf ecg: sr, nl intervals, lvh, no ischemic changes a/p: 87 f hx htn, hld, hiatal hernia here with pna. pna: -on abx sob: -likely from pna, no signs chf -bnp low, ce's neg htn: -cont current meds hld: -cont statin murmur: -ct shows av calcification, will check echo
[2017-07-30] MEDS: GABAPENTIN 300 MG CAPSULE (FP) PO SCH (21:21)
[2017-07-30] MEDS: ROSUVASTATIN CA 10 MG TABLET (FP) PO SCH (21:21)
--- NOTE | 2017-07-31 06:49 | DS ---
Physical Examination Vital Signs: Vital Signs Temperature 98.0 F 07/30/17 18:00 Pulse Rate 82 07/30/17 22:27 Respiratory Rate 20 07/30/17 22:27 Blood Pressure 124/72 07/30/17 22:27 O2 Sat by Pulse Oximetry (%) 94 L 07/30/17 21:00 Findings/Remarks: cleared by cardio for DC home finished 5 days IV ATB Zithromax & Ceftriaxone will DC them DC home f/u as advised Constitutional: Yes: No Distress, Calm Eyes: Yes: Conjunctiva Clear HENT: Yes: Atraumatic Neck: Yes: Supple Cardiovascular: Yes: Regular Rate and Rhythm Respiratory: Yes: CTA Bilaterally Gastrointestinal: Yes: Soft. No: Distention Renal/: No: CVA Tenderness - Left, CVA Tenderness - Right Musculoskeletal: No: Joint Stiffness, Joint Swelling Extremities: No: Cold, Cool, Cyanosis Edema: No Integumentary: No: Rash, Venous Stasis Changes Neurological: Yes: WNL, Alert, Oriented ...Motor Strength: WNL Psychiatric: Yes: WNL, Alert, Oriented. No: Agitated, Suicidal Ideation Labs: CBC, BMP 07/30/17 07:05 07/30/17 07:05 Discharge Summary Reason For Visit: PNEUMONIA Current Active Problems HLD (hyperlipidemia) (Acute) HTN (hypertension) (Acute) Nausea & vomiting (Acute) Pneumonia (Acute) Thrombocytopenia (Acute) Procedures: Principal: PNA IV ATB, seen by pulm, had chest CT Other Procedures: also seen by cardio, had echo; Hospital Course: improved with above; DC home and f/u as advised Condition: Stable - Instructions Diet, Activity, Other Instructions: f/u PCP and pulmonary in 1-2 weeks cardiology, GI and endocrine f/u thyroid US outpt chest CT in 2-3 months heme eval for low WBC, low PLT RTER if worse or recurrent c/o falls PFX take meds as prescribed Referrals: Victor M Soto MD [Staff Physician] - Yury Drake MD [Staff Physician] - Pedro Cole MD [Staff Physician] - Chantelle Peterson MD [Primary Care Provider] - Kathrin Kirkpatrick MD [Staff Physician] - Perez Jolly MD [Staff Physician] - Disposition: HOME - Home Medications Comprehensive Discharge Medication List: Ambulatory Orders Gabapentin [Neurontin -] 100 mg PO DAILY 03/01/15 Gabapentin [Neurontin -] 300 mg PO HS 03/01/15 Lisinopril [Prinivil -] 10 mg PO DAILY 03/01/15 Omeprazole [Prilosec] 40 mg PO DAILY 03/01/15 Rosuvastatin [Crestor -] 10 mg PO HS 03/01/15 Sertraline HCl [Zoloft -] 50 mg PO DAILY 03/01/15 propRANOLol HCL [Inderal] 20 mg PO BID 03/01/15
[2017-07-31] MEDS ORDERED: cefTRIAXone SODIUM 1 GM VIAL ONE (08:54)
[2017-07-31] MEDS ORDERED: DEXTROSE 5%-WATER - 50 ML IVPB ONE (08:54)
[2017-07-31] MEDS ORDERED: PT OWN MED DRAWER 7, Y5N ONE (08:54)
[2017-07-31] MEDS: SERTRALINE HCL 50 MG TABLET (FP) PO SCH (09:01)
[2017-07-31] MEDS: PANTOPRAZOLE 40 MG TABLET (FP) PO SCH (09:01)
[2017-07-31] MEDS: LACTOBACILLUS ACIDOPHILUS 1 CAP PO SCH (09:01)
[2017-07-31] MEDS: HEPARIN NA (PORCINE) 5,000 UNITS/ML 1ML VIAL SQ SCH (09:02)
[2017-07-31] MEDS: CEFTRIAXONE 1 GM in DEXTROSE 5%-WATER - 50 ML IVPB SCH (09:03)
[2017-07-31] MEDS: LISINOPRIL 10 MG TABLET (FP) PO SCH (09:05)
[2017-07-31] MEDS: AZITHROMYCIN IVPB 500 MG in DEXTROSE 5%-WATER - 250 ML IVPB SCH (11:04)
[2017-07-31 13:58] VITALS: BP 152/73; PULSE 82; TEMP 98.8
== END 2017-07-31 14:39 | disposition home or self-care (01) | DRG 194 ==
LOC: JER 10:14 → JERBED 15:57 → J5S 18:14
PROVIDERS: ADMIT Internal Medicine; ATTEND Internal Medicine
DX: J18.9 Pneumonia, unspecified organism (principal); J98.11 Atelectasis; I10 Essential (primary) hypertension; E78.5 Hyperlipidemia, unspecified; E03.9 Hypothyroidism, unspecified; E78.00 Pure hypercholesterolemia, unspecified; K44.9 Diaphragmatic hernia without obstruction or gangrene; F32.9 Major depressive disorder, single episode, unspecified; I25.10 Atherosclerotic heart disease of native coronary artery without angina pectoris; E04.1 Nontoxic single thyroid nodule; D69.6 Thrombocytopenia, unspecified; R11.2 Nausea with vomiting, unspecified; R01.1 Cardiac murmur, unspecified
CPT/HCPCS: 36415; 70450-TC; 71045-TC-FY; 71250-TC; 80048; 80053; 81003; 81015; 82550; 83690; 83735; 83880; 84443; 84484; 85025; 87040; 87086; 87804; 93005; 93010; 93306-TC; 99282-25; J1644

== ENCOUNTER 2018-06-11 15:19 | Emergency (ER) | payer OTHER, MEDICARE ==
[2018-06-11] MEDS ORDERED: ACETAMINOPHEN 500 MG TABLET (FP) PO ONE (15:28)
--- NOTE | 2018-06-11 15:28 | PDOC ---
Rapid Medical Evaluation Time Seen by Provider: 06/11/18 15:25 Medical Evaluation: Allergies Allergy/AdvReac Type Severity Reaction Status Date / Time No Known Allergies Allergy Verified 07/27/17 10:24 06/11/18 15:25 I performed a brief in-person evaluation of this patient. Chief complaint: Right leg pain, "twisted" it one week ago, fell again today, hit head, no LOC. Pertinent physical exam findings: Right hip/thigh tenderness, partial weight- bearing. No cervical vertebral tenderness. No scalp laceration or ecchymosis. I have ordered the following: Right hip/femur xray, head CT. Patient will proceed to the ED for further evaluation. Discharge Disposition - Diagnosis Fall - Referrals - Patient Instructions - Post Discharge Activity
[2018-06-11 15:30] VITALS: BMI 21.4
--- NOTE | 2018-06-11 16:04 | PDOC ---
History of Present Illness - General Chief Complaint: Injury Stated Complaint: FALL Time Seen by Provider: 06/11/18 15:25 - History of Present Illness Initial Comments: 88yo F with history of HTN, HLD, thyroid disorder presenting after a fall. The episode occurred a couple hours prior to arrival and she recalls the entire episode. The patient was walking across the street and was stepping onto a gutter when her right leg gave out and she fell back and hit the posterior of her head. She reports that about a week ago she twisted her right leg which she states is her "good leg" and has felt some pain in the back of her thigh extending up her buttock. Reports no midline tenderness or any loss of mobility of her neck. No paraesthesias. Denies loss of consciousness, nausea, or vomiting. Denies tongue biting or urinary or fecal incontinence during/after the episode. No history of seizure or arrhythmia. Does not take anticoagulants. Denies headache, dizziness, or vision changes. No fever, chills, shortness of breath, or chest pain. Past History - Past Medical History Allergies/Adverse Reactions: Allergies Allergy/AdvReac Type Severity Reaction Status Date / Time No Known Allergies Allergy Verified 06/11/18 15:27 Home Medications: Ambulatory Orders RX: Gabapentin [Neurontin -] 100 mg PO DAILY 03/01/15 RX: Gabapentin [Neurontin -] 300 mg PO HS 03/01/15 RX: Lisinopril [Prinivil] 10 mg PO DAILY 03/01/15 RX: Omeprazole [Prilosec] 40 mg PO DAILY 03/01/15 RX: Rosuvastatin [Crestor -] 10 mg PO HS 03/01/15 RX: Sertraline HCl [Zoloft -] 50 mg PO DAILY 03/01/15 RX: propRANOLol HCL [Inderal -] 20 mg PO BID 03/01/15 RX: Lactobacillus Acidophilus [Bacid -] 1 cap PO DAILY cap 07/31/17 Anemia: No Asthma: No Cancer: No Cardiac Disorders: No CVA: No COPD: No CHF: No Dementia: No Diabetes: No GI Disorders: Yes (HIATAL HERNIA) Disorders: No HTN: Yes Hypercholesterolemia: Yes Liver Disease: No Psychiatric Problems: Yes (depression) Seizures: No Thyroid Disease: Yes - Surgical History Abdominal Surgery: No Appendectomy: No Cardiac Surgery: No Cholecystectomy: Yes Lung Surgery: No Neurologic Surgery: No Orthopedic Surgery: No - Suicide/Smoking/Psychosocial Hx Smoking Status: No Smoking History: Former smoker Have you smoked in the past 12 months: No Number of Cigarettes Smoked Daily: 0 If you are a former smoker, when did you quit?: 40 years ago Information on smoking cessation initiated: No Hx Alcohol Use: No Drug/Substance Use Hx: No Substance Use Type: None Hx Substance Use Treatment: No Review of Systems - Review of Systems Comments:: Constitutional: no fever, no chills HEENT: no throat pain, no dysphagia Cardiovascular: no chest pain, no palpitations Respiratory: no cough, no shortness of breath Gastrointestinal: no abdominal pain, no nausea Genitourinary: no dysuria, no frequency Musculoskeletal: +RLE pain, no arthralgia Skin: no rash, no itching Neurologic: no headache, no dizziness *Physical Exam - Vital Signs Last Vital Signs Temp Pulse Resp BP Pulse Ox 98.4 F 65 20 162/67 98 06/11/18 15:27 06/11/18 15:27 06/11/18 15:27 06/11/18 15:27 06/11/18 15:27 - Physical Exam Comments: General: Awake, alert, and fully oriented, in no acute distress Head: No signs of trauma Eyes: EOMI, sclera anicteric ENT: Moist mucus membranes Neck: Normal ROM, supple, no midline tenderness Lungs: Lungs clear, Normal breath sounds Cardio: Regular rhythm, S1 and S2 present, grade I systolic murmur Abdomen: Soft, nontender. No guarding, no rebound, no masses Extremities: Normal range of motion, Distal pulses present, Tender to palpation of posterior R. thigh SKIN: Warm, Dry, normal turgor Neurologic: Cranial nerves II through XII grossly intact. Normal speech, sensation, strength, coordination, and gait. Moderate Sedation - Procedure Monitoring Vital Signs: Procedure Monitoring Vital Signs Temperature 98.4 F 06/11/18 15:27 Pulse Rate 65 06/11/18 15:27 Respiratory Rate 20 06/11/18 15:27 Blood Pressure 162/67 06/11/18 15:27 O2 Sat by Pulse Oximetry (%) 98 06/11/18 15:27 Medical Decision Making - Medical Decision Making 88yo F with history of HTN, HLD, thyroid disorder presenting after a fall. DDX including but not limited to mechanical fall, syncope, seizure, arrhythmia History consistent with mechanical fall. Patient does not take anticoagulants Imaging: CT head and R. femur, R. hip and pelvis Tylenol 06/11/18 16:45 CT Head: "no definite interval change is identified in comparison to a prior CT study of 07/27/2017" Pending radiographs 06/11/18 17:17 Xrays with no acute pathology. Patient discharged *DC/Admit/Observation/Transfer Diagnosis at time of Disposition: Fall - Discharge Dispostion Disposition: HOME Condition at time of disposition: Stable - Referrals - Patient Instructions Printed Discharge Instructions: How to Prevent Falls Additional Instructions: You came to the emergency department after a fall. CT imaging and Xrays showed no acute pathology. You can use ice for swelling and Tylenol for pain control. You should follow up with your orthopedic doctor if your R. leg pain does not improve in one week. Call and make an appointment. Return to the Emergency Department if you: have any chest pain, palpitations, shortness of breath, severe headaches, changes in vision, focal numbness or weakness, any severe abdominal pain, any black, tarry stool, or any other new or concerning symptoms - Post Discharge Activity
[2018-06-11] MEDS ORDERED: ACETAMINOPHEN 325 MG TABLET (FP) ONE (16:40)
--- NOTE | 2018-06-11 16:48 | PDOC ---
Attending Attestation - Resident Resident Name: Gisel Crystalth - ED Attending Attestation I have performed the following: I have examined & evaluated the patient, The case was reviewed & discussed with the resident, I agree w/resident's findings & plan, Exceptions are as noted - HPI HPI: 06/11/18 16:47 88 yo female fell after trying to step off a curb and fell. No LOC. Pt twisted her rt leg one week ago and has residual rt leg/hip pain DENIES lightheadedness,no chest pain, no abd pain,no sob - Physicial Exam PE: 06/11/18 17:51 88-year-old female who fell today has complaint of right hip pain and also she complains of hitting her head There was a mechanical fall. She did not have any loss of consciousness 06/11/18 17:52 Slender, alert 88-year-old female seated on the gurney. Head, no hematomas or scalp lacerations noted. Neck no midline tenderness. Lungs clear to auscultation. CVS regular rate and rhythm S1, S2. Abdomen is flat, nontender. There is no right leg deformity. Please note that she does have a chronic left foot drop and wears a brace and uses a cane for ambulation. She has complained of some right thigh soreness for the past week after falling Neuro alert and oriented 3, no confusion, no slurred speech, no facial droop. Skin warm and dry. Psych appropriate - Medical Decision Making 06/11/18 17:54 CAT scan of the head is negative for any acute intracranial pathology, there is no skull fracture X-ray of the right hip shows there is no acute fracture or dislocation. X-ray of the right femur is negative for any acute fracture This patient is already being followed by orthopedist her left foot drop and chronic pain. If her symptoms continue she will see him in the office as an outpatient 06/11/18 18:01 imp musculoskeletal strain,fall,closed head injury
[2018-06-11 18:18] VITALS: BP 145/67; PULSE 68; TEMP 98.2
== END 2018-06-11 18:18 | disposition home or self-care (01) ==
LOC: JER 15:19
DX: S09.8XXA Other specified injuries of head, initial encounter (principal); M25.551 Pain in right hip; M79.651 Pain in right thigh; W10.1XXA Fall (on)(from) sidewalk curb, initial encounter; Y93.89 Activity, other specified; Y92.480 Sidewalk as the place of occurrence of the external cause; Y99.8 Other external cause status; I10 Essential (primary) hypertension; E78.5 Hyperlipidemia, unspecified; E07.9 Disorder of thyroid, unspecified; F32.9 Major depressive disorder, single episode, unspecified; Z90.49 Acquired absence of other specified parts of digestive tract
CPT/HCPCS: 70450-TC; 73523-TC-FY; 73552-TC-RT-FY; 99281-25

== ENCOUNTER 2018-07-07 12:06 | Emergency (ER) | payer OTHER, MEDICARE ==
[2018-07-07 12:28] VITALS: BP 154/64; PULSE 68; TEMP 98.3; BMI 20.8
--- NOTE | 2018-07-07 12:59 | PDOC ---
History of Present Illness - General Chief Complaint: Pain, Acute Stated Complaint: RIGHT LEG PAIN Time Seen by Provider: 07/07/18 12:36 History Source: Patient - History of Present Illness Occurred: reports: other Past History - Past Medical History Allergies/Adverse Reactions: Allergies Allergy/AdvReac Type Severity Reaction Status Date / Time No Known Allergies Allergy Verified 07/07/18 12:25 Home Medications: Ambulatory Orders Gabapentin [Neurontin -] 100 mg PO DAILY 03/01/15 Gabapentin [Neurontin -] 300 mg PO HS 03/01/15 Lisinopril [Prinivil] 10 mg PO DAILY 03/01/15 Omeprazole [Prilosec] 40 mg PO DAILY 03/01/15 Rosuvastatin [Crestor -] 10 mg PO HS 03/01/15 Sertraline HCl [Zoloft -] 50 mg PO DAILY 03/01/15 propRANOLol HCL [Inderal -] 20 mg PO BID 03/01/15 Lactobacillus Acidophilus [Bacid -] 1 cap PO DAILY cap 07/31/17 Acetaminophen [Tylenol -] 1,000 mg PO Q6H #50 tablet 07/07/18 Anemia: No Asthma: No Cancer: No Cardiac Disorders: No CVA: No COPD: No CHF: No Dementia: No Diabetes: No GI Disorders: Yes (HIATAL HERNIA) Disorders: No HTN: Yes Hypercholesterolemia: Yes Liver Disease: No Psychiatric Problems: Yes (depression) Seizures: No Thyroid Disease: Yes - Surgical History Abdominal Surgery: No Appendectomy: No Cardiac Surgery: No Cholecystectomy: Yes Lung Surgery: No Neurologic Surgery: No Orthopedic Surgery: No - Suicide/Smoking/Psychosocial Hx Smoking Status: No Smoking History: Never smoked Have you smoked in the past 12 months: No Number of Cigarettes Smoked Daily: 0 If you are a former smoker, when did you quit?: 40 years ago Information on smoking cessation initiated: No Hx Alcohol Use: No Drug/Substance Use Hx: No Substance Use Type: None Hx Substance Use Treatment: No Review of Systems - Review of Systems Musculoskeletal: No: Joint Pain, Joint Swelling *Physical Exam - Vital Signs Last Vital Signs Temp Pulse Resp BP Pulse Ox 98.3 F 68 18 154/64 99 07/07/18 12:20 07/07/18 12:20 07/07/18 12:20 07/07/18 12:20 07/07/18 12:20 - Physical Exam General Appearance: Yes: Appropriately Dressed. No: Apparent Distress HEENT: positive: Normal Voice Neck: positive: Supple Respiratory/Chest: negative: Respiratory Distress Extremity: positive: Normal Inspection, Other (No LE deformity or swelling, no skin changes or ttp). negative: Tender, Swelling Integumentary: positive: Dry Neurologic: positive: Fully Oriented, Alert, Normal Mood/Affect Moderate Sedation - Procedure Monitoring Vital Signs: Procedure Monitoring Vital Signs Temperature 98.3 F 07/07/18 12:20 Pulse Rate 68 07/07/18 12:20 Respiratory Rate 18 07/07/18 12:20 Blood Pressure 154/64 07/07/18 12:20 O2 Sat by Pulse Oximetry (%) 99 07/07/18 12:20 Medical Decision Making - Medical Decision Making 07/07/18 12:56 88 yo F, no h/o HTN, HLD, thyroid d/o, here w/ continued R thigh pain. Pt was seen in ED ~ 1month for RLE injury. XRs at the time were neg for fx. Pt states since then she has been having intermittent pain mostly located to right thigh and radiating into R buttocks. Denies hip pain and ambulating w/ her walker. Taking tylenol which does relief pain but wanted to be re-evaluated today. Patient is able to bear weight with her walker. Has PMD follow-up next week See exam M/l persistent MSK R thigh pain Neg XRs of hips/femur after minor trauma 1 month ago Ambulating w/ walker Taking tyenol w/ some relief Exam unremarkable today -dc w/ pain control and pmd f/u *DC/Admit/Observation/Transfer Diagnosis at time of Disposition: Thigh pain Qualifiers: Laterality: right Qualified Code(s): M79.651 - Pain in right thigh - Discharge Dispostion Disposition: HOME Condition at time of disposition: Good - Prescriptions Prescriptions: Acetaminophen [Tylenol -] 1,000 mg PO Q6H #50 tablet - Referrals - Patient Instructions Printed Discharge Instructions: Muscle Strain Additional Instructions: You should take extra strength tylenol for pain as discussed and follow up with your PMD next week - Post Discharge Activity
[2018-07-07] MEDS ORDERED: KETOROLAC TROMETHAMINE 30 MG/1 ML VIAL IM ONE (13:01)
[2018-07-07] MEDS ORDERED: KETOROLAC TROMETHAMINE 30 MG/1 ML VIAL ONE (13:25)
== END 2018-07-07 13:38 | disposition home or self-care (01) ==
LOC: JER 12:06
PROC: 3E0233Z Introduction of Anti-inflammatory into Muscle, Percutaneous Approach (ICD-10-PCS; principal; 2018-07-07)
DX: M79.651 Pain in right thigh (principal); I10 Essential (primary) hypertension; E78.5 Hyperlipidemia, unspecified; E78.00 Pure hypercholesterolemia, unspecified; E07.9 Disorder of thyroid, unspecified; F32.9 Major depressive disorder, single episode, unspecified; R26.89 Other abnormalities of gait and mobility; Z99.89 Dependence on other enabling machines and devices
CPT/HCPCS: 96372; 99282-25

== ENCOUNTER 2019-02-27 14:34 | Emergency (ER) | payer OTHER, MEDICARE ==
--- NOTE | 2019-02-27 14:38 | PDOC ---
History of Present Illness - General Chief Complaint: Pain, Acute Stated Complaint: LEFT HAND/WRIST PAIN Time Seen by Provider: 02/27/19 14:35 History Source: Patient Exam Limitations: No Limitations - History of Present Illness Initial Comments: Pt is an 89 yo F, with PMH of HTN, HLD, and hypothyroidism, who is presenting with pain to the L wrist x2 weeks. Pt states she was getting out of the car 2 weeks ago, slipping backwards onto her bottom, but unsure how she injured her hand. Pt had pain and swelling at the base of the L thumb, and L wrist, which was exacerbated today by planting her L hand onto a table. Pt is ambulatory with a walker. Pt has been using a soft wrist sleeve and taking 500 mg tylenol BID at home with some relief. Pt did not hit her head at time of the initial fall, not taking AC, and has had no back, hip, or neck pain. Pt denies any fevers/chills, headache, vision changes, syncope, chest pain, palpitations, SOB , nausea/vomiting, abdominal pain, urinary symptoms, diarrhea/constipation, numbness/weakness/tingling of the extremity, or leg swelling. Allergies: NKDA Social: Pt denies any cigarette, alcohol, or drug use. Pt denies any recent travel or sick contacts. Surgical: no relevant history. Family: no relevant history. 02/27/19 14:55 02/27/19 15:02 Past History - Travel Traveled outside of the country in the last 30 days: No Close contact w/someone who was outside of country & ill: No - Past Medical History Allergies/Adverse Reactions: Allergies Allergy/AdvReac Type Severity Reaction Status Date / Time No Known Allergies Allergy Verified 02/27/19 14:35 Home Medications: Ambulatory Orders Gabapentin [Neurontin -] 200 mg PO BID 03/01/15 Omeprazole [Prilosec] 40 mg PO DAILY 03/01/15 Rosuvastatin [Crestor -] 10 mg PO HS 03/01/15 Sertraline HCl [Zoloft -] 75 mg PO DAILY 03/01/15 propRANOLol HCL [Inderal -] 20 mg PO BID 03/01/15 Losartan Potassium [Cozaar -] 50 mg PO DAILY 02/27/19 Rosuvastatin [Crestor -] 10 mg PO DAILY 02/27/19 Anemia: No Asthma: No Cancer: No Cardiac Disorders: No CVA: No COPD: No CHF: No Dementia: No Diabetes: No GI Disorders: Yes (HIATAL HERNIA) Disorders: No HTN: Yes Hypercholesterolemia: Yes Liver Disease: No Psychiatric Problems: Yes (depression) Seizures: No Thyroid Disease: Yes - Surgical History Abdominal Surgery: No Appendectomy: No Cardiac Surgery: No Cholecystectomy: Yes Lung Surgery: No Neurologic Surgery: No Orthopedic Surgery: No - Psycho Social/Smoking Cessation Hx Smoking Status: No Smoking History: Never smoked Have you smoked in the past 12 months: No Number of Cigarettes Smoked Daily: 0 If you are a former smoker, when did you quit?: 40 years ago Hx Alcohol Use: No Drug/Substance Use Hx: No Substance Use Type: None Hx Substance Use Treatment: No Trauma Specific PMHX - Complaint Specific PMHX Arthritis: No Back Injury: No Neck Injury: No Hx Sacro Iliac Joint Dysfunction: No Review of Systems - Review of Systems Able to Perform ROS?: Yes Is the patient limited Lithuanian proficient: No Constitutional: Yes: Weight Stable. No: Chills, Diaphoresis, Fever, Loss of Appetite, Malaise, Weakness HEENTM: No: Recent change in vision, Nose Congestion, Throat Pain, Difficulty Swallowing Respiratory: No: Cough, Orthopnea, Shortness of Breath Cardiac (ROS): No: Chest Pain, Edema, Irregular Heart Rate, Lightheadedness, Palpitations, Syncope, Chest Tightness ABD/GI: No: Constipated, Diarrhea, Nausea, Poor Appetite, Poor Fluid Intake, Vomiting : No: Burning, Frequency, Pain Musculoskeletal: Yes: See HPI, Joint Pain, Joint Swelling. No: Back Pain, Muscle Pain, Muscle Weakness, Neck Pain Integumentary: No: Rash Neurological: No: Headache, Numbness, Paresthesia, Weakness, Unsteady Gait, Dizziness Psychiatric: No: Change in Appetite Endocrine: No: Increased Urine, Change in Weight Hematologic/Lymphatic: No: Anemia, Blood Clots, Easy Bleeding, Easy Bruising All Other Systems: Reviewed and Negative *Physical Exam - Vital Signs 02/27/19 15:03 Vital Signs Temp Pulse Resp BP Pulse Ox 98.9 F 68 17 156/65 100 02/27/19 14:35 02/27/19 14:35 02/27/19 14:35 02/27/19 14:35 02/27/19 14:35 - Physical Exam Comments: Vitals stable, pt afebrile. Pt in NAD, thin body habitus. Pt alert and oriented x3. ledge man generally intact, muscular strength and sensation intact. Sensation equal in radial, ulnar, median distributions b/l. No midline spinal tenderness, step-offs, or crepitus. Edema at L thumb base and distal wrist on radial side. TTP in snuffbox. Reduced extension of L thumb against resistance. Thumb opposition (median) and finger adduction/abduction (interossei) intact. Head normocephalic, atraumatic. Eyes PERRLA, EOMI. Oropharynx without erythema or exudates, no LAD b/l. No nasal congestion. Hearing intact. Clear heart sounds, S1/S2, no JVD, b/l pedal edema, or heart murmur. Clear lung sounds, no respiratory distress, wheezes, crackles, or accessory muscle use. No abdominal or CVA tenderness to palpation, no rebound, no guarding. Abdomen soft, non-distended, and with normoactive bowel sounds. Skin without jaundice or rash. 02/27/19 15:03 Procedures - Splinting Splint Location: Left: Hand (thumb spica) Pre-Proc Neuro Vasc Exam: normal Hand-Made Type: orthoglass Splint Type: Yes: Thumb Spica Post-Proc Neuro Vasc Exam: normal Irineo Bandage: yes Sling: No Complications: No Medical Decision Making - Medical Decision Making 89 yo with L wrist/hand pain, s/p fall 2 weeks ago, likely from FOOSH injury, as that is how pain was reproduced today. Pt declines pain control at this time. Will evaluate with x-ray of L wrist to r/o radial and scaphoid fractures. Fractures should be evident as injury occurred 2 weeks ago. 02/27/19 15:06 L hand placed in thumb spica splint (see procedure note). 02/27/19 15:54 X-ray negative for fracture. Pt stable for f/u with orthopedics. Strict return precautions provided. 02/27/19 16:45 Discharge - Discharge Information Problems reviewed: Yes Clinical Impression/Diagnosis: Wrist pain, acute Qualifiers: Laterality: left Qualified Code(s): M25.532 - Pain in left wrist Condition: Good Disposition: HOME - Admission No - Follow up/Referral Referrals: Duane Martini MD [Staff Physician] - - Patient Discharge Instructions Patient Printed Discharge Instructions: Wrist Fracture Additional Instructions: You were seen in the ER today for left hand and wrist pain. The results of your imaging today was normal. Please follow-up with the orthopedic within 1-2 days to discuss your visit and make sure your symptoms have improved. Please return to the ER if you have any worsening pain, numbness/weakness/tingling of the hand or change in skin color, development of fevers or chills, loss of consciousness, inability to tolerate food or fluids, or any other concerns. Please keep your splint on until you can see the orthopedic doctor. You can take tylenol every 6 hours as needed for pain. - Post Discharge Activity
[2019-02-27 14:41] VITALS: BP 156/65; PULSE 68; TEMP 98.9; BMI 22.2
--- NOTE | 2019-02-27 15:44 | PDOC ---
Attending Attestation - Resident Resident Name: GenevieveJaycee - ED Attending Attestation I have performed the following: I have examined & evaluated the patient, The case was reviewed & discussed with the resident, I agree w/resident's findings & plan, Exceptions are as noted - HPI HPI: 02/27/19 15:41 Patient fell on her outstretched arm approximately 2 weeks ago, has persistent pain in the left wrist. Swelling has resolved. There is no distal numbness tingling. - Physicial Exam PE: 02/27/19 15:42 Physical exam reveals mild diffuse swelling of the wrist, with increased tenderness over the dorsum of the distal radius and in the anatomical snuffbox. Pulses are full. Capillary refill is intact. No distal sensory or motor deficits. Full tendon function against resistance of all 5 digits, flexion and extension. - Medical Decision Making 02/27/19 15:43 Assessment is rule out scaphoid fracture, fracture of the distal radius. Plan: X-ray was performed and is negative for fracture. A thumb spica splint was applied for temporary immobilization and patient comfort. She was comfortable after application, with no distal numbness tingling or pain. She had good fingertip motion. And she was able to accommodate her walker with a splint in place. She is referred for follow-up to hand orthopedics 1 week.
== END 2019-02-27 16:58 | disposition home or self-care (01) ==
LOC: FER 14:34
PROC: 2W3DX1Z Immobilization of Left Lower Arm using Splint (ICD-10-PCS; principal; 2019-02-27)
DX: M25.532 Pain in left wrist (principal); I10 Essential (primary) hypertension; E78.5 Hyperlipidemia, unspecified; E03.9 Hypothyroidism, unspecified
CPT/HCPCS: 73110-TC-LT-FY; 99282-25

== ENCOUNTER 2019-04-13 22:48 | Emergency (ER) | payer OTHER, MEDICARE ==
[2019-04-13 23:30] VITALS: TEMP 97.7; BMI 22.2
--- NOTE | 2019-04-13 23:40 | PDOC ---
History of Present Illness - General History Source: Patient, Family - History of Present Illness Initial Comments: 04/14/19 02:06 Ms. Soto is an 89 y/o woman with hx HTN, HLD p/w nosebleed s/p mechanical fall at home today. She reports walking around her apartment and tripping over her slipper, falling forward and hitting her nose on the ground. She denies any LOC , palpitations, weakness, confusion before or after the event. She is not on any blood thinners. She denies any dysuria, hematuria, coughs, fevers, abdominal pain, or pain anywhere outside of her nose. She reports that her nose has been bleeding since the fall, and that she held her head forward with pressure on her nose. She stood up immediately after the fall, and walked to her neighbor's apartment without difficulty. She denies any head or neck pain. <Norberto Diana - Last Filed: 04/14/19 02:18> <Lito Gonzalez - Last Filed: 04/14/19 02:34> - General Chief Complaint: Injury Stated Complaint: FALL Time Seen by Provider: 04/13/19 23:33 Past History - Past Medical History Anemia: No Asthma: No Cancer: No Cardiac Disorders: No CVA: No COPD: No CHF: No Dementia: No Diabetes: No GI Disorders: Yes (HIATAL HERNIA) Disorders: No HTN: Yes Hypercholesterolemia: Yes Liver Disease: No Psychiatric Problems: Yes (depression) Seizures: No Thyroid Disease: Yes - Surgical History Abdominal Surgery: No Appendectomy: No Cardiac Surgery: No Cholecystectomy: Yes Lung Surgery: No Neurologic Surgery: No Orthopedic Surgery: No - Psycho Social/Smoking Cessation Hx Smoking Status: No Smoking History: Never smoked Have you smoked in the past 12 months: No Number of Cigarettes Smoked Daily: 0 If you are a former smoker, when did you quit?: 40 years ago Hx Alcohol Use: No Drug/Substance Use Hx: No Substance Use Type: None Hx Substance Use Treatment: No <Norberto Diana - Last Filed: 04/14/19 02:18> <Lito Gonzalez - Last Filed: 04/14/19 02:34> - Past Medical History Allergies/Adverse Reactions: Allergies Allergy/AdvReac Type Severity Reaction Status Date / Time No Known Allergies Allergy Verified 04/13/19 23:02 Home Medications: Ambulatory Orders Gabapentin [Neurontin -] 200 mg PO BID 03/01/15 Omeprazole [Prilosec] 40 mg PO DAILY 03/01/15 Rosuvastatin [Crestor -] 10 mg PO HS 03/01/15 Sertraline HCl [Zoloft -] 75 mg PO DAILY 03/01/15 propRANOLol HCL [Inderal -] 20 mg PO BID 03/01/15 Losartan Potassium [Cozaar -] 50 mg PO DAILY 02/27/19 Rosuvastatin [Crestor -] 10 mg PO DAILY 02/27/19 Review of Systems - Review of Systems Able to Perform ROS?: Yes Comments:: 04/14/19 02:12 ROS: GENERAL/CONSTITUTIONAL: No fever or chills. No weakness. HEAD, EYES, EARS, NOSE AND THROAT: Nosebleed. No change in vision. No ear pain or discharge. No sore throat. CARDIOVASCULAR: No chest pain or shortness of breath RESPIRATORY: No cough, wheezing, or hemoptysis. GASTROINTESTINAL: No nausea, vomiting, diarrhea or constipation. GENITOURINARY: No dysuria, frequency, or change in urination. MUSCULOSKELETAL: No joint or muscle swelling or pain. No neck or back pain. SKIN: No rash NEUROLOGIC: No headache, vertigo, loss of consciousness, or change in strength/ sensation. ENDOCRINE: No increased thirst. No abnormal weight change HEMATOLOGIC/LYMPHATIC: No anemia, easy bleeding, or history of blood clots. ALLERGIC/IMMUNOLOGIC: No hives or skin allergy. <Norberto Diana - Last Filed: 04/14/19 02:18> *Physical Exam - Vital Signs Last Vital Signs Temp Pulse Resp BP Pulse Ox 97.7 F 64 18 157/74 98 04/13/19 23:01 04/13/19 23:01 04/13/19 23:01 04/13/19 23:01 04/13/19 23:01 - Physical Exam 04/14/19 02:15 PE: GENERAL: Awake, alert, and fully oriented, in no acute distress HEAD: Abrasion to bridge of nose. No other signs of trauma, normocephalic. EYES: PERRLA, EOMI, sclera anicteric, conjunctiva clear ENT: No septal hematoma noted. Slow oozing bleed from L nare. Dried blood on bilateral external nares. Auricles normal inspection, hearing grossly normal, nares patent, oropharynx clear without exudates. Moist mucosa NECK: Normal ROM, supple, no lymphadenopathy, JVD, or masses LUNGS: No distress, speaks full sentences, clear to auscultation bilaterally HEART: Regular rate and rhythm, normal S1 and S2, no murmurs, rubs or gallops, peripheral pulses normal and equal bilaterally. ABDOMEN: Soft, nontender, normoactive bowel sounds. No guarding, no rebound. No masses EXTREMITIES : Normal inspection, Normal range of motion, no edema. No clubbing or cyanosis NEUROLOGICAL: Cranial nerves II through XII grossly intact. Normal speech, normal gait, no focal sensorimotor deficits SKIN: Warm, Dry, normal turgor, no rashes or lesions noted <Norberto Diana - Last Filed: 04/14/19 02:18> - Vital Signs Last Vital Signs Temp Pulse Resp BP Pulse Ox 97.7 F 64 18 157/74 98 04/13/19 23:01 04/13/19 23:01 04/13/19 23:01 04/13/19 23:01 04/13/19 23:01 <Lito Gonzalez - Last Filed: 04/14/19 02:34> ED Treatment Course - RADIOLOGY Radiology Studies Ordered: Category Date Time Status CERVICAL SPINE CT W/O CONTR [CT] Stat CT Scan 04/14/19 00:[address] W/O CONTRAST [CT] Stat CT Scan 04/14/19 00:[address] WITHOUT CONTRAST [CT] Stat CT Scan 04/14/19 00:44 Taken - Medications Given in the ED: ED Medications Discontinued Medications Generic Name Dose Route Start Last Admin Trade Name Freq PRN Reason Stop Dose Admin Acetaminophen 650 mg 04/13/19 23:56 04/14/19 00:03 Tylenol - PO 04/13/19 23:57 650 mg ONCE ONE Administration <Lito Gonzalez - Last Filed: 04/14/19 02:34> Medical Decision Making - Medical Decision Making 04/14/19 02:10 89F with hx HTN, HLD p/w mechanical fall at home, nosebleed. Not on AC, no LOC or head or neck pain. Nosebleed likely anterior. Plan: CT Head CT C spine CT maxillofacial structures to evaluate for fracture Direct pressure for bleeding control. TXA application if re-bleeding occurs after direct pressure. Acetaminophen 650 mg for pain Dispo: Likely discharge pending imaging <Norberto Diana - Last Filed: 04/14/19 02:18> Discharge - Discharge Information Problems reviewed: Yes - Admission No <Norberto Diana - Last Filed: 04/14/19 02:18> <Lito Gonzalez - Last Filed: 04/14/19 02:34> - Discharge Information Clinical Impression/Diagnosis: Nosebleed Fall Qualifiers: Encounter type: initial encounter Qualified Code(s): W19.XXXA - Unspecified fall, initial encounter Condition: Stable Disposition: HOME - Patient Discharge Instructions Patient Printed Discharge Instructions: DI for Nosebleed, How to Prevent Falls Additional Instructions: You were seen in the ER after a fall, with a nosebleed. Your CT scans showed that you have a thyroid nodule. Please follow up with your primary doctor to have this further evaluated. The nosebleed stopped with direct pressure. If the bleeding starts again, tilt your head forward and pinch your nose shut to help the bleeding stop. If the bleeding is unable to be controlled, or if you develop any other concerning symptoms, please return to the ER immediately. Follow up with your primary care provider as soon as possible, in the next 48 hours, to discuss your results today.
[2019-04-13] MEDS ORDERED: ACETAMINOPHEN 325 MG TABLET (FP) PO ONE (23:56)
[2019-04-13] MEDS ORDERED: ACETAMINOPHEN 325 MG TABLET (FP) ONE (23:59)
--- NOTE | 2019-04-14 01:15 | PDOC ---
Attending Attestation - Resident Resident Name: Norberto Diana - ED Attending Attestation I have performed the following: I have examined & evaluated the patient, The case was reviewed & discussed with the resident, I agree w/resident's findings & plan, Exceptions are as noted - HPI HPI: 04/14/19 01:12 89 F presenting with facial injury after trip and fall. Pt states that she tripped over a rug while walking and fell forward. She braced herself with her hands but hit her face against the ground. Denies LOC. Pt denies preceding lightheadedness/CP/SOB/palpitations. Now complains of pain in her nose. Denies RIVERA/N/V. Denies neck pain. Denies back pain or pain in her hips or legs. - Physicial Exam PE: 04/14/19 01:13 "GENERAL: Awake, alert, and fully oriented, in no acute distress. HEAD: No signs of trauma EYES: PERRLA, EOMI, sclera anicteric, conjunctiva clear ENT: + epistaxis, Auricles normal inspection, hearing grossly normal, nares patent, oropharynx clear without exudates. Moist mucosa NECK: Nontender, no stepoffs, Normal ROM, supple, no lymphadenopathy, JVD, or masses LUNGS: Breath sounds equal, clear to auscultation bilaterally. No wheezes, and no crackles HEART: Regular rate and rhythm, normal S1 and S2, no murmurs, rubs or gallops ABDOMEN: Soft, nontender, normoactive bowel sounds. No guarding, no rebound. No masses EXTREMITIES: Normal range of motion, no edema. No clubbing or cyanosis. No cords, erythema, or tenderness NEUROLOGICAL: Cranial nerves II through XII intact. 5/5 strength and sensation in all extremities, Normal speech, normal gait, normal cerebellar function SKIN: Warm, Dry, normal turgor, no rashes or lesions noted. - Medical Decision Making 04/14/19 01:14 89 F with facial injury and epistaxis after trip and fall. - CT head/facial bones/c-spine - Direct pressure applied with nose clip 04/14/19 02:12 Epistaxis resolved with direct pressure Pending CT reads 04/14/19 02:32 No acute findings on CT Thyroid nodule noted, pt made aware Pt is well appearing, with normal vitals. Clinically stable for DC at this time. I discussed the physical exam findings, ancillary test results and final diagnoses with the patient. I answered all of the patient's questions. The patient was satisfied with the care received and felt comfortable with the discharge plan and treatment plan. The patient agrees to follow up with the primary care physician within 24-72 hours.
[2019-04-14 02:46] VITALS: BP 130/67; PULSE 74
== END 2019-04-14 02:46 | disposition home or self-care (01) ==
LOC: JER 22:48
DX: S09.92XA Unspecified injury of nose, initial encounter (principal); R04.0 Epistaxis; W18.09XA Striking against other object with subsequent fall, initial encounter; Y93.89 Activity, other specified; Y92.018 Other place in single-family (private) house as the place of occurrence of the external cause; Y99.8 Other external cause status; I10 Essential (primary) hypertension; E78.00 Pure hypercholesterolemia, unspecified; F32.9 Major depressive disorder, single episode, unspecified
CPT/HCPCS: 70450-TC; 70486-TC; 72125-TC; 99282-25